=== PATIENT | female | born 1940 | race Caucasian/White ===

== ENCOUNTER 2017-06-04 10:08 | Emergency (ER) | payer OTHER, BC ==
[~2017-06-04] VITALS: Ht 162.6 cm; Wt 82.9 kg
[2017-06-04 10:37] LABS: EOSINOPHIL (%) 0.2 % (0-5); IMMATURE GRANULOCYTE (%) 1.1 % (0.0-0.7); IMMATURE GRANULOCYTE COUNT 0.1 K/uL; INSTRUMENT ABS NEUTROPHIL CT 8.6 K/uL; LYMPHOCYTE COUNT 2.1 K/uL (1.0-2.8); MCH 32.7 PG (29.0-34.0); MCHC 33.7 G/DL (30.0-36.0); MCV 97.2 FL (83-99); MEAN PLAT.VOLUME 9.8 uM^3 (9.5-12.4); MONOCYTE COUNT 1.3 K/uL (0-0.8); NEUTROPHIL (%) 70.3 % (45-76); NEUTROPHIL COUNT 8.6 K/uL (1.8-6.4); NRBC (%) 0.2 /100 WBC (0-0); PLATELET COUNT 356 K/uL (156-360); RBC DIS.WIDTH-CV 14.8 % (11.8-14.6); RBC DIS.WIDTH-SD 52.5 % (39-53); RED BLOOD COUNT 4.22 M/uL (3.80-5.20); WHITE BLOOD COUNT 12.2 K/uL (4.1-10.2)
[2017-06-04 10:40] LABS: ADD MIUA? YES; BILIRUBIN NEGATIVE; BLOOD NEGATIVE; COLOR YELLOW ((YELLOW)); GLUCOSE (STRIP) NEGATIVE; KETONES NEGATIVE; LEUKOCYTES NEGATIVE; NITRITE NEGATIVE; PROTEIN (STRIP) NEGATIVE; UROBILINOGEN 0.2 MG/DL (0.2-1.0)
[2017-06-04 10:44] LABS: BACTERIA RARE /HPF; CALCIUM OXALATE CRYSTALS 1+ /HPF; EPITHELIAL CELLS RARE /HPF; HYALINE CASTS 0-5 /LPF; MUCUS TRACE /LPF; RED BLOOD CELLS 0-5 /HPF (0-5); WHITE BLOOD CELLS 0-5 /HPF (0-5)
[2017-06-04 10:46] LABS: CHLORIDE 100 mEq/L (99-109); POTASSIUM 4.2 mEq/L (3.7-5.4); SODIUM 135 mEq/L (136-147)
[2017-06-04 10:47] LABS: GLUCOSE 140 mg/dL (70-99)
[2017-06-04 10:49] LABS: ANION GAP 13 MEQ/L (2-14)
[2017-06-04 10:51] LABS: GFR ESTIMATE (CALCULATED) 46 mL/min/
[2017-06-04 10:52] LABS: UREA NITROGEN (BUN) 20 mg/dL (9-23)
[2017-06-04] MEDS ORDERED: TRIAMTERENE-HC1 EAC1 PO (12:43)
[2017-06-04] MEDS ORDERED: GABAPENTIN400 MG PO (12:44)
[2017-06-04] MEDS ORDERED: SIMVASTATIN20 MG PO (12:44)
[2017-06-04] MEDS ORDERED: GLIPIZIDE XL5 MG PO (12:44)
[2017-06-04] MEDS ORDERED: DONEPEZIL HCL10 MG PO (12:44)
[2017-06-04] MEDS ORDERED: ZOFRAN4 MG PO (13:00)
[2017-06-04 13:19] VITALS: BP 155/79
== END 2017-06-04 13:32 | disposition home or self-care (01) ==
LOC: EME 10:08
PROVIDERS: Emergency Medicine
DX: R11.2 Nausea with vomiting, unspecified (principal); R19.7 Diarrhea, unspecified; R42 Dizziness and giddiness; E11.9 Type 2 diabetes mellitus without complications; E78.5 Hyperlipidemia, unspecified; I10 Essential (primary) hypertension; Z79.84 Long term (current) use of oral hypoglycemic drugs
CPT/HCPCS: 70450; 80048; 81003; 85025; 93005; 99281; 99285

== ENCOUNTER 2017-06-14 07:53 | Day surgery (SDC) | payer OTHER, BC ==
[~2017-06-14] VITALS: Ht 160 cm; Wt 79.4 kg
[~2017-06-14 07:53] MED LIST: ASPIR 8181 M1 PO; AVAPRO300 MG PO; CYCLOBENZAPRINE5 MG PO; DONEPEZIL HCL10 MG PO; FISH OIL 1,0001 EAC7 PO; GABAPENTIN400 MG PO; GLIPIZIDE XL5 MG PO; HYDROCODON-ACE1 EAC8 PO; METFORMIN HCL1000 MG PO; RESTASIS MULTI5.5 ML BOTH EYES; SIMVASTATIN20 MG PO; TRIAMTERENE-HC1 EAC1 PO; VITAMIN D2000 UNIT PO; ZOFRAN4 MG PO
[2017-06-14 08:31] VITALS: BP 132/60
[2017-06-14 10:33] LABS: POINT-OF-CARE METER ID UU13113694
[2017-06-14 12:54] LABS: POINT-OF-CARE METER ID UU13113675; POINT-OF-CARE USER ID ADMKMM76
[2017-06-14 14:48] VITALS: BP 148/68
[2017-06-14 16:14] LABS: POINT-OF-CARE METER ID UU14117124
[2017-06-14 16:17] VITALS: BP 136/63
[2017-06-14 20:34] VITALS: BP 102/53
[2017-06-14 21:28] LABS: POINT-OF-CARE METER ID UU14117124
[2017-06-15] VITALS: BP 130/62
[2017-06-15 00:17] VITALS: BP 130/62
[2017-06-15 06:09] VITALS: BP 131/62
[2017-06-15 07:08] LABS: POINT-OF-CARE METER ID UU14188577
[2017-06-15] MEDS ORDERED: HYDROCODON-ACE1 EAC8 PO (07:48)
[2017-06-15 10:19] VITALS: BP 146/81
[2017-06-15 10:21] VITALS: BP 121/72
[2017-06-15 12:07] VITALS: BP 149/88
[2017-06-15 12:10] LABS: POINT-OF-CARE METER ID UU14208753
[2017-06-15 12:56] LABS: POINT-OF-CARE METER ID UU14208753
== END 2017-06-15 13:30 | disposition home or self-care (01) ==
LOC: SDC 07:53 → 2SOUTH 13:19 → 3EAST 13:19 → 2SOUTH 13:19 → ENRESERV 13:38 → CANRESERV 13:38 → ENRESERV 14:21 → 3EAST 14:36 → SDC 15:59 → 3EAST 06-15 13:30
PROVIDERS: Neurological Surgery
PROC: 00NY0ZZ Release Lumbar Spinal Cord, Open Approach (ICD-10-PCS; principal; 2017-06-14)
DX: M43.16 Spondylolisthesis, lumbar region (principal); M51.36 Other intervertebral disc degeneration, lumbar region; M48.06 Spinal stenosis, lumbar region; M79.604 Pain in right leg; E66.9 Obesity, unspecified; Z68.39 Body mass index [BMI] 39.0-39.9, adult; M62.81 Muscle weakness (generalized); I10 Essential (primary) hypertension; E11.9 Type 2 diabetes mellitus without complications; E78.5 Hyperlipidemia, unspecified; Z79.82 Long term (current) use of aspirin
CPT/HCPCS: 72020; 76000; 82948; G0378; J0690; J1100; J1170; J2405; J2710; J2930; J3010; J3370; J3480; S0020

== ENCOUNTER 2018-05-14 08:11 | Emergency (ER) | payer OTHER, BC ==
[~2018-05-14] VITALS: Ht 162.6 cm; Wt 79.5 kg
[2018-05-14 08:42] LABS: BASOPHIL (%) 0.3 % (0-1); EOSINOPHIL (%) 0.6 % (0-5); EOSINOPHIL COUNT 0.1 K/uL (0-0.3); HEMOGLOBIN 11.6 G/DL (11.9-15.5); IMMATURE GRANULOCYTE (%) 0.8 % (0.0-0.7); LYMPHOCYTE (%) 18.4 % (15-42); LYMPHOCYTE COUNT 2.2 K/uL (1.0-2.8); MCH 34.6 PG (29.0-34.0); MCHC 34.1 G/DL (30.0-36.0); MCV 101.5 FL (83-99); MONOCYTE (%) 7.3 % (3-12); MONOCYTE COUNT 0.9 K/uL (0-0.8); NEUTROPHIL (%) 72.6 % (45-76); NEUTROPHIL COUNT 8.6 K/uL (1.8-6.4); PLATELET COUNT 277 K/uL (156-360); RBC DIS.WIDTH-CV 15.9 % (11.8-14.6); RBC DIS.WIDTH-SD 59.6 % (39-53); RED BLOOD COUNT 3.35 M/uL (3.80-5.20); WHITE BLOOD COUNT 11.8 K/uL (4.1-10.2)
[2018-05-14 08:52] LABS: CHLORIDE 108 mEq/L (99-109); POTASSIUM 4.4 mEq/L (3.7-5.4); SODIUM 140 mEq/L (136-147)
[2018-05-14 08:54] LABS: GLUCOSE 123 mg/dL (70-99)
[2018-05-14 08:58] LABS: CREATININE 1.4 mg/dL (0.6-1.3); GFR ESTIMATE (CALCULATED) 38 mL/min/
[2018-05-14 08:59] LABS: UREA NITROGEN (BUN) 19 mg/dL (9-23)
[2018-05-14] MEDS ORDERED: ANTIVERT25 MG PO (11:00)
[2018-05-14 11:47] VITALS: BP 167/65
== END 2018-05-14 11:52 | disposition home or self-care (01) ==
LOC: EME 08:11
PROVIDERS: Emergency Medicine
DX: R42 Dizziness and giddiness (principal); S30.0XXA Contusion of lower back and pelvis, initial encounter; W19.XXXA Unspecified fall, initial encounter; E78.5 Hyperlipidemia, unspecified; Z79.84 Long term (current) use of oral hypoglycemic drugs; Z88.0 Allergy status to penicillin
CPT/HCPCS: 70450; 71045; 72070; 72100; 80048; 85025; 93005; 99281; 99284